=== PATIENT | male | born 1935 | race Caucasian/White ===

== ENCOUNTER 2023-03-31 10:06 | Observation (INO) | payer OTHER ==
[2023-03-31 10:12] VITALS: RESP 18
[2023-03-31] MEDS ORDERED: SODIUM CHLORIDE 500 ML IV ONE (10:30)
[2023-03-31 11:26] LABS: BASO % 0.4 % (0-2.0); EOS % 2.2 % (0-4.5); HEMATOCRIT 40.5 % (35.4-49); HEMOGLOBIN 13.6 GM/dL (11.7-16.9); LYMPH % 17.8 % (8-40); MCH 28.5 pg (25.7-33.7); MCHC 33.5 g/dl (32.0-35.9); MEAN CELL VOLUME 84.9 fl (80-96); MEAN PLT VOLUME 7.6 fl (7.5-11.1); MONO % 11.2 % (3.8-10.2); NEUT % 68.4 % (42.8-82.8); PLATELET COUNT 227 10^3/uL (134-434); RBC 4.77 M/mm3 (4.00-5.60); RDW 14.4 % (11.9-15.9); WHITE BLOOD COUNT 7.5 K/mm3 (4.0-10.0)
[2023-03-31 11:33] LABS: INR 1.1 (0.83-1.09); PROTHROMBIN TIME (PATIENT) 12.8 SEC (9.7-13.0)
[2023-03-31 11:36] LABS: ACTIVATED PTT 30.3 SECONDS (25.2-36.5)
[2023-03-31 11:48] LABS: POTASSIUM 3.7 mmol/L (3.5-5.1)
[2023-03-31 11:51] LABS: CALCIUM 9.3 mg/dL (8.5-10.1)
[2023-03-31 11:52] LABS: ALBUMIN 3.5 g/dl (3.4-5.0); BLOOD UREA NITROGEN 21.6 mg/dL (7-18)
[2023-03-31 11:55] LABS: CREATININE 1.4 mg/dL (0.55-1.3)
[2023-03-31 11:57] LABS: BILIRUBIN,TOTAL 0.5 mg/dL (0.2-1)
[2023-03-31] MEDS ORDERED: POLYETHYLENE GLYCOL (HEALTHYLAX) 3350 17 GM PACKET PO ONE (16:00)
[2023-03-31] MEDS ORDERED: POLYETHYLENE GLYCOL (HEALTHYLAX) 3350 17 GM PACKET PO SCH (16:00)
[2023-03-31 16:47] VITALS: BMI 26.5
[2023-03-31 17:57] LABS: BASO % 0.3 % (0-2.0); EOS % 2.1 % (0-4.5); HEMATOCRIT 41.1 % (35.4-49); HEMOGLOBIN 13.4 GM/dL (11.7-16.9); LYMPH % 17.6 % (8-40); MCH 28.2 pg (25.7-33.7); MCHC 32.7 g/dl (32.0-35.9); MEAN CELL VOLUME 86.3 fl (80-96); MEAN PLT VOLUME 7.9 fl (7.5-11.1); MONO % 9.1 % (3.8-10.2); NEUT % 70.9 % (42.8-82.8); PLATELET COUNT 205 10^3/uL (134-434); RBC 4.76 M/mm3 (4.00-5.60); RDW 14.6 % (11.9-15.9); WHITE BLOOD COUNT 7.9 K/mm3 (4.0-10.0)
[2023-04-01 09:14] LABS: BASO % 0.5 % (0-2.0); EOS % 2.5 % (0-4.5); HEMATOCRIT 40.6 % (35.4-49); LYMPH % 20.1 % (8-40); MCH 27.9 pg (25.7-33.7); MCHC 32.1 g/dl (32.0-35.9); MEAN CELL VOLUME 86.9 fl (80-96); MONO % 10.3 % (3.8-10.2); NEUT % 66.6 % (42.8-82.8); PLATELET COUNT 230 10^3/uL (134-434); RBC 4.67 M/mm3 (4.00-5.60); RDW 14.5 % (11.9-15.9)
[2023-04-01 09:20] LABS: POTASSIUM 3.9 mmol/L (3.5-5.1)
[2023-04-01 09:50] LABS: CHOLESTEROL 144 mg/dL (50-200)
[2023-04-01 09:51] LABS: LDL CHOLESTEROL (ONLY SJRH) 85 mg/dL (5-100)
[2023-04-01 09:53] LABS: HDL CHOLESTEROL 37 mg/dL (40-60)
[2023-04-01 10:12] LABS: CALCIUM 9.2 mg/dL (8.5-10.1)
[2023-04-01 10:13] LABS: ALBUMIN 3.6 g/dl (3.4-5.0); BLOOD UREA NITROGEN 21.6 mg/dL (7-18); MAGNESIUM 2.1 mg/dL (1.8-2.4)
[2023-04-01 10:15] LABS: CREATININE 1.3 mg/dL (0.55-1.3); PHOSPHOROUS 3.2 mg/dL (2.5-4.9)
[2023-04-01 10:17] VITALS: BP 111/50; PULSE 55; TEMP 97.6
[2023-04-01 10:17] LABS: BILIRUBIN,TOTAL 0.5 mg/dL (0.2-1)
== END 2023-04-01 01:50 | disposition home or self-care (01) ==
LOC: JER 10:06 → JERBED 13:45 → J8W 15:24
PROVIDERS: ADMIT Internal Medicine; ATTEND Nurse Practitioner Acute Care
PROC: 3E0337Z Introduction of Electrolytic and Water Balance Substance into Peripheral Vein, Percutaneous Approach (ICD-10-PCS; principal; 2023-03-31)
DX: K57.90 Diverticulosis of intestine, part unspecified, without perforation or abscess without bleeding (principal); K76.0 Fatty (change of) liver, not elsewhere classified; F03.90 Unspecified dementia, unspecified severity, without behavioral disturbance, psychotic disturbance, mood disturbance, and anxiety; K62.5 Hemorrhage of anus and rectum; N30.90 Cystitis, unspecified without hematuria; N17.9 Acute kidney failure, unspecified; N40.0 Benign prostatic hyperplasia without lower urinary tract symptoms; Z85.46 Personal history of malignant neoplasm of prostate
CPT/HCPCS: 36415; 71045-TC-FY; 74177-TC; 80053; 80061; 82272; 83735; 84100; 84443; 84484; 85025; 85610; 85730; 86140; 86850; 86900; 86901; 93005; 93010; 96360; 99285-25; G0378

== ENCOUNTER 2023-09-28 21:48 | Emergency (ER) | payer OTHER ==
[2023-09-28 22:03] VITALS: BP 122/60; PULSE 52; RESP 20; TEMP 98; BMI 29.2
[2023-09-28 22:37] LABS: HEMATOCRIT 39.1 % (35.4-49); MCH 28.2 pg (25.7-33.7); MCHC 33.3 g/dl (32.0-35.9); MEAN CELL VOLUME 84.6 fl (80-96); PLATELET COUNT 220 10^3/uL (134-434); RBC 4.62 M/mm3 (4.00-5.60); RDW 15.5 % (11.9-15.9); WHITE BLOOD COUNT 7.4 K/mm3 (4.0-10.0)
[2023-09-28 23:00] LABS: POTASSIUM 4.2 mmol/L (3.5-5.1)
[2023-09-28 23:02] LABS: CALCIUM 9.1 mg/dL (8.5-10.1)
[2023-09-28 23:03] LABS: ALBUMIN 3.5 g/dl (3.4-5.0); BLOOD UREA NITROGEN 28.8 mg/dL (7-18)
[2023-09-28 23:05] LABS: URIC ACID 7.4 mg/dL (2.6-7.2)
[2023-09-28 23:06] LABS: CREATININE 1.5 mg/dL (0.55-1.3)
[2023-09-28 23:07] LABS: BILIRUBIN,TOTAL 0.5 mg/dL (0.2-1)
[2023-09-28 23:31] LABS: ERYTHROCYTE SEDIMENTATION RATE 29 mm/hr (0-20)
[2023-09-28] MEDS ORDERED: COLCHICINE 0.6 MG TAB ONE (23:35)
[2023-09-28] MEDS: COLCHICINE 0.6 MG CAP PO ONE (23:38)
== END 2023-09-29 00:01 | disposition home or self-care (01) ==
LOC: JER 21:48
DX: E79.0 Hyperuricemia without signs of inflammatory arthritis and tophaceous disease (principal); M25.475 Effusion, left foot; L40.9 Psoriasis, unspecified
CPT/HCPCS: 36415; 73610-TC-LT-FY; 73630-TC-LT; 80053; 84550; 85027; 85651; 86140; 99284-25